=== PATIENT | female | born 1965 | race Caucasian/White ===

== ENCOUNTER 2018-09-10 07:41 | Day surgery (SDC) | payer OTHER ==
[~2018-09-10 07:41] MED LIST: COZAAR100 MG PO; HYDROCHLOROTHIA25 MG PO; INVOKAMET 150-1 EAC1 PO; NORVASC5 MG PO; OMAPRAZOLE PO; SOLIQUA; SYNTHROID75 MCG PO; [UNRECOGNIZED DRUG - OTHER]; [UNRECOGNIZED DRUG - OTHER]
[2018-09-10] MEDS ORDERED: ULTRACET PO (12:41)
[2018-09-10] MEDS ORDERED: MACROBID 100 M100 MG PO (12:41)
== END 2018-09-10 15:45 | disposition home or self-care (01) ==
LOC: CIR.AMB 07:41
DX: N81.5 Vaginal enterocele (principal); N81.6 Rectocele